=== PATIENT | male | born 1995 | race Caucasian/White ===

== ENCOUNTER 2017-04-29 05:46 | Emergency (ER) | payer BC ==
[~2017-04-29] VITALS: Ht 175.3 cm; Wt 78.6 kg
[~2017-04-29 05:46] MED LIST: AUGMENTIN875 MG PO; CEPHALEXIN500 MG PO; HYDROCORTISONE30 G2 TP; ZOFRAN ODT4 MG PO
[2017-04-29 06:50] LABS: HEMATOCRIT 45.7 % (38.0-50.0); MCH 27.8 PG (29.0-34.0); MCHC 34.1 G/DL (30.0-36.0); MCV 81.5 FL (86-99); MEAN PLAT.VOLUME 10.3 uM^3 (9.0-12.4); PLATELET COUNT 208 K/uL (156-360); RBC DIS.WIDTH-SD 35.4 % (39-53); RED BLOOD COUNT 5.61 M/uL (4.00-5.50); WHITE BLOOD COUNT 7.1 K/uL (4.1-10.2)
[2017-04-29] MEDS ORDERED: NAPROSYN500 MG PO (07:04)
[2017-04-29 07:10] VITALS: BP 126/85
[2017-04-29 07:23] LABS: ANION GAP 6 MEQ/L (2-14); CHLORIDE 100 MEQ/L (99-109); GFR ESTIMATE (CALCULATED) > 59 mL/min/; GLUCOSE 89 mg/dL (70-99); POTASSIUM 3.7 MEQ/L (3.7-5.4); SAMPLE HEMOLYSIS CHECK 0; SAMPLE ICTERIC CHECK 0; SAMPLE LIPEMIA CHECK 1; SODIUM 137 MEQ/L (136-147); UREA NITROGEN (BUN) 12 mg/dL (9-23)
== END 2017-04-29 07:16 | disposition home or self-care (01) ==
LOC: EME 05:46
PROVIDERS: Emergency Medicine
DX: M25.512 Pain in left shoulder (principal)
CPT/HCPCS: 71020; 73030; 80048; 85027; 85379; 99281; 99284